=== PATIENT | male | born 1970 | race African-American/Black ===

== ENCOUNTER 2023-03-19 13:20 | Inpatient (IN) ==
--- NOTE | 2023-03-19 13:48 | ED Triage Note ---
Date of Service March 19, 2023 History of Present Illness This patient was briefly evaluated while in triage. An abbreviated physical exam was performed. This patient is a 53-year-old Male who presents to the ED for evaluation left leg infection x 1 week, here 03/15-had full evaluation, dx with cellulitis getting worse with increased pain and swelling no fevers on Bactrim Physical Exam GENERAL: NAD CARDIOVASCULAR: RRR RESPIRATORY: CTA unable to examine foot/leg due to clothing Initial orders for labs and / or imaging were placed and patient was placed in the waiting area until a bed is available. Please see further documentation for the full ED course.
[2023-03-19 16:03] LABS: Hematocrit (blood only) 33.7 % (42.0-52.0); Hemoglobin 11.3 g/dl (14.0-18.0); Mean Corpuscular Hemoglobin 29.7 pg (25.0-34.0); Mean Corpuscular Hgb Conc 33.5 g/dL (32.0-36.0); Mean Corpuscular Volume 88.5 fL (80.0-100.0); Mean Platelet Volume 10.4 fL (9.4-12.4); Platelet Count 366 K/uL (130-400); RDW Standard Deviation 41.8 fL (36.4-46.3); Red Blood Count 3.81 M/uL (4.70-6.10); White Blood Count 13.92 K/ul (4.8-10.8)
[2023-03-19 16:07] LABS: Anion Gap 6 (3-11); BUN Creatinine Ratio 16.2 (10-20); Blood Urea Nitrogen 17 mg/dl (6-23); C Reactive Protein 10.82 mg/dl (0-0.5); Calcium 9.3 mg/dl (8.6-10.3); Carbon Dioxide 27 mmol/L (21-32); Chloride 105 mmol/L (98-107); Est GFR (African American) 93.5 ml/min; Est GFR (Non-African American) 80.7 ml/min; Glucose 134 mg/dl (70-99(Fasting)); Potassium 4.2 mmol/L (3.5-5.1); Sodium 138 mmol/L (136-145)
[2023-03-19 17:18] LABS: Basophils % (auto) 0.7 %; Eosinophils # (auto) 0.45 K/uL (0.00-0.50); Eosinophils % (auto) 3.2 %; Immature Granulocytes # (auto) 0.76 K/uL (0.01-0.20); Immature Granulocytes % (auto) 5.5 %; Lymphocytes # (auto) 3.22 K/uL (1.20-3.40); Lymphocytes % (auto) 23.1 %; Monocytes # (auto) 1.17 K/uL (0.11-0.59); Monocytes % (auto) 8.4 %; Neutrophils # (auto) 8.22 K/uL (1.40-6.50); Neutrophils % (auto) 59.1 %
[2023-03-19] MEDS ORDERED: cefTRIAXone SODIUM 2,000 MG/50 ML BAG IV STA (17:55)
--- NOTE | 2023-03-19 19:02 | History & Physical Report ---
Date of Service March 19, 2023 Assessment & Plan (1) Cellulitis of left leg: (2) HTN (hypertension): (3) HLD (hyperlipidemia): (4) Iron deficiency anemia: Plan This is a 53-year-old -[place] male who has significant past medical history of HTN, HLD, iron deficiency anemia and depression who presents to ED secondary to worsening redness and swelling of left leg. Left lower extremity cellulitis Admit to medical CRP elevated 10.82 Continue Vanco and Rocephin, at risk for MRSA Encourage leg elevation, JENNIFER hose Daily probiotic Ultrasound done on 03/15 that was negative for DVT If worsening consider CT of lower extremity HTN Continue amlodipine Chronic, stable HLD Continue atorvastatin Chronic, stable Iron deficiency anemia Hemoglobin at and hematocrit 11.3 and 33.7 respectively Continue iron supplementation Right hip osteoarthritis Continue Celebrex DVT prophylaxis: Lovenox Dispo: Admit to medical, per ED patient can receive IV antibiotics at [facility] but will need to be notified by noon the day before discharge so that facility can order antibiotics Full code Patient is incarcerated at [facility] Pt was seen and examined in collaboration with Dr. Cummings, please see addendum History of Present Illness Chief Complaint: Worsened redness/swelling to Left leg. Primary Care Provider: [facility] Adam This is a 53-year-old -[place] male who has significant past medical history of HTN, HLD, iron deficiency anemia and depression who presents to ED secondary to worsening redness and swelling of left leg. He currently resides at [facility]. He was seen and evaluated in the ED 1 week ago secondary to left leg swelling and redness. He also notes the day before that he developed nausea/vomiting and diarrhea. He was treated for a LLE cellulitis with IV rocephin and discharged on oral bactrim. He continues to have worsened redness/swelling with some areas of blistering on the left leg. He denies any significant pain. He denies any trauma or open wounds. He has never had anything like this before. He denies f/c/s, chest pain, sob, n/v/d, abd pain. Overall his appetite has been okay. Allergies Allergy/AdvReac Type Severity Reaction Status Date / Time No Known Allergies Allergy Verified 03/19/23 13:48 Home Medications Medication Instructions Recorded Confirmed Type amlodipine 5 mg tablet 7.5 mg PO DAILY 03/19/23 03/19/23 History ascorbic acid (vitamin C) 500 mg 500 mg PO DAILY 03/19/23 03/19/23 History tablet (Vitamin C) aspirin 81 mg tablet,delayed 81 mg PO DAILY 03/19/23 03/19/23 History release atorvastatin 10 mg tablet 10 mg PO HS 03/19/23 03/19/23 History celecoxib 100 mg capsule 100 mg PO BID 03/19/23 03/19/23 History duloxetine 60 mg capsule,delayed 60 mg PO HS 03/19/23 03/19/23 History release ferrous sulfate 324 mg (65 mg 324 mg PO DAILY 03/19/23 03/19/23 History iron) tablet,delayed release mirtazapine 30 mg tablet 30 mg PO HS 03/19/23 03/19/23 History Past Med/Surg History Medical History Iron deficiency anemia Depression HLD (hyperlipidemia) HTN (hypertension) Surgical History No pertinent past surgical history Family History Other Family history unknown Social History Smoking Status: Never smoker Hx Alcohol Use: No Hx Substance Use: No Preferred Language: Mongolian Current Living Situation Comment: Half-Way Feels Safe at Home: Yes Review of Systems Review of Systems: All systems reviewed & are unremarkable except as noted in HPI & below Physical Exam Physical Exam: Constitutional: WD/WN, vitals as above, NAD, sitting up in bed, pleasant, conversing easily Head: Normocephalic, Atraumatic Eyes: PERRL, conjunctivae normal, anicteric sclerae ENMT: external ear and nose normal, oropharynx normal Neck: trachea midline, no thyromegaly normal visual inspection Respiratory: normal respiratory effort, lungs clear to auscultation, no wheeze, rales, rhonchi. Normal insp/exp effort, no accessory muscle use Cardiovascular: RRR, no murmur, LLE, noted below Vessels: no JVD or carotid bruit Chest: normal inspection of chest Abdomen: normal bowel sounds, soft, nontender, no hepatosplenomegaly Musculoskeletal: no cyanosis or clubbing, extremities motor strength 5/5 Skin: LLE warm, edematous, erythematous with medial blistering, scabs noted, no rashes, warm and dry normal turgor Neurologic: PERRL, EOMI, accommodation nl, no face palsy, no dysarthria CN's II-XI intact bilaterally and moves all extremities Psychiatric: A+Ox3, euthymic affect Lymphatic: no cervical or axillary lymphadenopathy : deferred Results & Data Results & Data Vital Signs (Past 12 Hours) Vital Signs Temp Pulse Resp BP Pulse Ox O2 Del Method 03/19/23 13:47 36.4 C L 90 18 135/86 97 Room Air Medications Administered Medication List Discontinued Medications Ceftriaxone Sodium (Rocephin) 2,000 mg in 50 mls @ 100 mls/hr IV NOW STA Stop: 03/19/23 18:24 Last Admin: 03/19/23 18:10 Dose: 100 mls/hr Documented By: MARGO COVID-19 Results Results COVID-19 Adm Lab Results: RBC 3.81 M/uL (4.70-6.10) L 03/19/23 WBC 13.92 K/ul (4.8-10.8) H 03/19/23 Hgb 11.3 g/dl (14.0-18.0) L 03/19/23 Hct 33.7 % (42.0-52.0) L 03/19/23 Plt Count 366 K/uL (130-400) 03/19/23 Neutrophils (%) (Auto) 59.1 % 03/19/23 Lymphocytes (%) (Auto) 23.1 % 03/19/23 Monocytes # (Auto) 1.17 K/uL (0.11-0.59) H 03/19/23 Eosinophils # (Auto) 0.45 K/uL (0.00-0.50) 03/19/23 Immature Granulocyte % (Auto) 5.5 % 03/19/23 Neutrophils # (Auto) 8.22 K/uL (1.40-6.50) H 03/19/23 Lymphocytes # (Auto) 3.22 K/uL (1.20-3.40) 03/19/23 Monocytes # (Auto) 1.17 K/uL (0.11-0.59) H 03/19/23 Eosinophils # (Auto) 0.45 K/uL (0.00-0.50) 03/19/23 Basophils # (Auto) 0.10 K/uL (0.00-0.20) 03/19/23 Immature Granulocyte # (Auto) 0.76 K/uL (0.01-0.20) H 03/19 Na 138 mmol/L (136-145) 03/19/23 K 4.2 mmol/L (3.5-5.1) 03/19/23 Cl 105 mmol/L (98-107) 03/19/23 CO2 27 mmol/L (21-32) 03/19/23 Anion Gap 6 (3-11) 03/19/23 BUN 17 mg/dl (6-23) 03/19/23 Creatinine 1.05 mg/dl (0.6-1.4) 03/19/23 BUN/Creatinine Ratio 16.2 (10-20) 03/19/23 Glucose Level 134 mg/dl (70-99(Fasting)) H 03/19/23 Ca 9.3 mg/dl (8.6-10.3) 03/19/23 CRP 10.82 mg/dl (0-0.5) H 03/19/23 SARS-CoV-2, RNA, NAAT NEGATIVE (NEGATIVE) 03/19/23 Code Status & VTE Plan Code Status FULL CODE VTE Prophylaxis Plan VTE Prophylaxis will be ordered: Yes Supervising Physician Co-Signing Physician Notes I have seen and examined the patient and have discussed the case with the pr ovider above. I agree with the assessment and plan as stated. 53-year-old man with cellulitis infection of the left lower extremity refractory to oral Bactrim therapy. He presents with worsening pain and swelling of the lower leg. On exam he is hemodynamically stable and afebrile and oxygenating well on room air. Heart and lung exam are within normal limits. He is a well- nourished well-developed man in no acute distress. Left lower extremity is larger in circumference than the right lower extremity all below the knee. There is no evidence of edema or clear wound or drainage but there is erythema to the skin. Ultrasound performed on 1115 was negative for DVT. There is no current area of fluctuance and no purulent discharge. High risk for MRSA given incarceration, however, would hold on CT of the leg at this time. Continue with IV antibiotics as noted above. There is no evidence of sepsis. Continue pain control efforts and repeat CBC, BMP in AM. Emiliano, DO
--- NOTE | 2023-03-19 19:32 | Emergency Department Note ---
ED Provider Note History of Present Illness Chief Complaint: Infection, Wound Stated Complaint: INFECTION IN LEFT FOOT Time Seen by Provider: 03/19/23 17:35 Source: patient Mode of arrival: ambulatory Limitations: no limitations This patient is a 53-year-old male who presents to the emergency department from [facility] for evaluation of a worsening left leg infection patient states that his symptoms started 1 week ago, when he developed pain and swelling in the left leg. 4 days ago, he was seen here in the emergency department and was started on Bactrim. He has been taking this as prescribed but states the pain and swelling have been worsening. He denies any fevers. Patient is not diabetic Home Medications Medication Instructions Recorded Confirmed Type amlodipine 5 mg tablet 7.5 mg PO DAILY 03/19/23 03/19/23 History ascorbic acid (vitamin C) 500 mg 500 mg PO DAILY 03/19/23 03/19/23 History tablet (Vitamin C) aspirin 81 mg tablet,delayed 81 mg PO DAILY 03/19/23 03/19/23 History release atorvastatin 10 mg tablet 10 mg PO HS 03/19/23 03/19/23 History celecoxib 100 mg capsule 100 mg PO BID 03/19/23 03/19/23 History duloxetine 60 mg capsule,delayed 60 mg PO HS 03/19/23 03/19/23 History release ferrous sulfate 324 mg (65 mg 324 mg PO DAILY 03/19/23 03/19/23 History iron) tablet,delayed release mirtazapine 30 mg tablet 30 mg PO HS 03/19/23 03/19/23 History Allergies Allergy/AdvReac Type Severity Reaction Status Date / Time No Known Allergies Allergy Verified 03/19/23 13:48 Past Med/Surg History Medical History Iron deficiency anemia Depression HLD (hyperlipidemia) HTN (hypertension) Surgical History No pertinent past surgical history Family History Other Family history unknown Social History Smoking Status: Former smoker Tobacco Type: Cigarettes Second Hand Exposure: No; Do You Dip or Chew Tobacco: No; Tobacco Cessation Education Requested by Patient: No Hx Alcohol Use: Yes Alcohol type: hard liquor Hx Substance Use: Yes Last Used Substance Other:: apr 07 2021 Preferred Language: Citizen Of [place] Vamp Wetter Required: No Beliefs That Will Affect Care: None Current Living Situation: Other Current Living Situation Comment: [facility] Feels Safe at Home: Yes Safety Concerns: Feels Safe At This Time Assistive Devices: None Physical Exam Vital Signs Vital Signs - 24 hr 03/19/23 13:47 Temperature 36.4 C L Temperature Source Skin Pulse Rate 90 Respiratory Rate 18 Blood Pressure 135/86 Blood Pressure Mean 102 Pulse Oximetry 97 Oxygen Delivery Method Room Air Sepsis Recent Fever Within 48 Hours No Sepsis New/Unexplained Change in Mental Status No Sepsis Action Taken by Nursing No Action Required VITALS: Vitals are noted on the nurse's note and reviewed by myself. GENERAL: This is a 53-year-old male, in no acute distress, well-developed well- nourished. HEART: Regular rate and rhythm without murmurs gallops or rubs. LUNGS: Clear to auscultation bilaterally without wheezes, rales or rhonchi. EXTREMITIES: Significant edema of the left lower extremity compared to the right extending up to the knee. The left lower leg is indurated, tender and erythematous. There are a few weeping lesions. NEURO: Patient was alert and oriented to person place and time. Course Administered Medications Acetaminophen (Acetaminophen 325 Mg Tab) 650 mg PO Q4H PRN PRN Reason: pain/fever Stop: 04/18/23 22:12 Last Admin: 03/19/23 22:59 Dose: 650 mg Documented By: ALEJANDRA Atorvastatin Calcium (Atorvastatin 10 Mg Tab) 10 mg PO HS LAINE Stop: 04/18/23 22:12 Last Admin: 03/19/23 22:59 Dose: 10 mg Documented By: ALEJANDRA Celecoxib (Celecoxib 100 Mg Cap) 100 mg PO BID LAINE Stop: 04/18/23 22:12 Last Admin: 03/19/23 22:59 Dose: 100 mg Documented By: ALEJANDRA Duloxetine HCl (Duloxetine Hcl 60 Mg Cap) 60 mg PO HS LAINE Stop: 04/18/23 22:12 Last Admin: 03/19/23 22:58 Dose: 60 mg Documented By: ALEJANDRA Enoxaparin Sodium (Enoxaparin Inj 40 Mg/0.4 Ml Syr) 40 mg SQ HS LAINE Stop: 04/18/23 22:12 Last Admin: 03/19/23 22:57 Dose: 40 mg Documented By: ALEJANDRA Vancomycin HCl 1,750 mg/ (Sodium Chloride) 535 mls @ 200 mls/hr IV NOW ONE Stop: 03/20/23 01:25 Last Admin: 03/19/23 22:59 Dose: 200 mls/hr Documented By: ALEJANDRA Mirtazapine (Mirtazapine Tab 15 Mg Tab) 30 mg PO HS LAINE Stop: 04/18/23 22:12 Last Admin: 03/19/23 22:58 Dose: 30 mg Documented By: ALEJANDRA Discontinued Medications Ceftriaxone Sodium (Rocephin) 2,000 mg in 50 mls @ 100 mls/hr IV NOW STA Stop: 03/19/23 18:24 Last Infusion: 03/19/23 19:43 Dose: Infused Documented By: Admin: 03/19/23 18:10 Dose: 100 mls/hr Documented By: MAGRO Medical Decision Making Differential Diagnosis Cellulitis, abscess, MRSA infection, DVT, necrotizing fasciitis, dermatitis, drug eruption, allergic reaction, as well as other pathologies. Home Medications was personally reviewed by me Laboratory Data Attestation: I reviewed the patient's lab results. 03/19/23 15:19 03/19/23 15:19 Lab Results 03/19/23 Range/Units 15:19 WBC 13.92 H (4.8-10.8) K/ul RBC 3.81 L (4.70-6.10) M/uL Hgb 11.3 L (14.0-18.0) g/dl Hct 33.7 L (42.0-52.0) % MCV 88.5 (80.0-100.0) fL MCH 29.7 (25.0-34.0) pg MCHC 33.5 (32.0-36.0) g/dL RDW Std Deviation 41.8 (36.4-46.3) fL RDW Coeff of Fab 13.0 (11.5-14.5) % Plt Count 366 (130-400) K/uL MPV 10.4 (9.4-12.4) fL Immature Gran % (Auto) 5.5 % Neut % (Auto) 59.1 % Lymph % (Auto) 23.1 % [place] % (Auto) 8.4 % Eos % (Auto) 3.2 % Baso % (Auto) 0.7 % Neut # (Auto) 8.22 H (1.40-6.50) K/uL Lymph # (Auto) 3.22 (1.20-3.40) K/uL [place] # (Auto) 1.17 H (0.11-0.59) K/uL Eos # (Auto) 0.45 (0.00-0.50) K/uL Baso # (Auto) 0.10 (0.00-0.20) K/uL Immature Gran # (Auto) 0.76 H (0.01-0.20) K/uL ESR 112 H (0-20) mm/hr Sodium 138 (136-145) mmol/L Potassium 4.2 (3.5-5.1) mmol/L Chloride 105 (98-107) mmol/L Carbon Dioxide 27 (21-32) mmol/L Anion Gap 6 (3-11) BUN 17 (6-23) mg/dl Creatinine 1.05 (0.6-1.4) mg/dl Est Cr Clr Drug Dosing Not Reportable Est GFR ( Amer) 93.5 ml/min Est GFR (Non-Af Amer) 80.7 ml/min BUN/Creatinine Ratio 16.2 (10-20) Glucose 134 H (70-99(Fasting)) mg/dl Calcium 9.3 (8.6-10.3) mg/dl C-Reactive Protein 10.82 H (0-0.5) mg/dl MDM Narrative This patient is a 53-year-old male who presents to the emergency department for evaluation of worsening cellulitis of the left lower leg. Clinically this appears to be worsening despite antibiotics as an outpatient. I did contact the correctional facility and spoke with the charge nurse there. They are able to give IV antibiotics however they would need to order them in so they would not be able to get anything started today. Patient was ordered Rocephin and vancomycin in the emergency department. The case was then discussed with the [facility] hospitalist service who agreed to evaluate the patient for further care. Impression Cellulitis of left leg Discharge Plan Visit Data Chief Complaint: Infection, Wound Stated Complaint: INFECTION IN LEFT FOOT ED Provider: Aaron Frausto ED Midlevel Provider: Christina Davalos Discharge Problem: Cellulitis of left leg Patient Disposition: Admitted As Inpatient Discharge Instructions Interventions: ED Discharge Assessment Last Done: 03/19/23 20:55
[2023-03-19] MEDS ORDERED: VANCOMYCIN CONSULT ACTIVE PRN (22:13)
[2023-03-19] MEDS ORDERED: ALUMINUM/MAGNESIUM SUSP 30 ML UDC PO PRN (22:13)
[2023-03-19] MEDS ORDERED: POLYETHYLENE (MIRALAX) 17 GM PACK PO PRN (22:13)
[2023-03-19] MEDS ORDERED: ONDANSETRON INJ 2 MG/ML 2 ML VIAL IV PRN (22:13)
[2023-03-19] MEDS ORDERED: MAGNESIUM HYDROXIDE SUSP 30 ML UDC PO PRN (22:13)
[2023-03-19] MEDS ORDERED: VANCOMYCIN HCL 1,750 MG in SODIUM CHLORIDE 0.9% 500 ML IV ONE (22:45)
[2023-03-19] MEDS: ENOXAPARIN INJ 40 MG/0.4 ML SYR SQ SCH (22:57)
[2023-03-19] MEDS: MIRTAZAPINE TAB 15 MG TAB PO SCH (22:58)
[2023-03-19] MEDS: DULoxetine HCL 60 MG CAP PO SCH (22:58)
[2023-03-19] MEDS: ACETAMINOPHEN 325 MG TAB PO PRN (22:59)
[2023-03-19] MEDS: ATORVASTATIN 10 MG TAB PO SCH (22:59)
[2023-03-19] MEDS: CELECOXIB 100 MG CAP PO SCH (22:59)
[2023-03-20 06:45] LABS: Hematocrit (blood only) 30.4 % (42.0-52.0); Hemoglobin 9.9 g/dl (14.0-18.0); Mean Corpuscular Hemoglobin 29.8 pg (25.0-34.0); Mean Corpuscular Hgb Conc 32.6 g/dL (32.0-36.0); Mean Corpuscular Volume 91.6 fL (80.0-100.0); Mean Platelet Volume 10.1 fL (9.4-12.4); Nucleated RBC # (auto) 0.02 K/uL (0.00-0.12); Nucleated RBC % (auto) 0.1 %; Platelet Count 342 K/uL (130-400); RDW Coefficient of Variation 12.9 % (11.5-14.5); RDW Standard Deviation 42.6 fL (36.4-46.3); Red Blood Count 3.32 M/uL (4.70-6.10)
[2023-03-20 07:19] LABS: Basophils # (auto) 0.09 K/uL (0.00-0.20); Basophils % (auto) 0.7 %; Eosinophils # (auto) 0.44 K/uL (0.00-0.50); Eosinophils % (auto) 3.2 %; Immature Granulocytes # (auto) 0.87 K/uL (0.01-0.20); Immature Granulocytes % (auto) 6.3 %; Lymphocytes # (auto) 3.41 K/uL (1.20-3.40); Lymphocytes % (auto) 24.7 %; Monocytes # (auto) 1.22 K/uL (0.11-0.59); Monocytes % (auto) 8.8 %; Neutrophils # (auto) 7.77 K/uL (1.40-6.50); Neutrophils % (auto) 56.3 %
[2023-03-20 07:43] LABS: Albumin Level 3.2 gm/dl (3.4-5.0); Bilirubin,Total 0.7 mg/dl (0.2-1.0); Calcium 8.4 mg/dl (8.6-10.3); Magnesium 1.9 mg/dl (1.7-2.4)
[2023-03-20 07:49] LABS: Albumin Globulin Ratio 0.9 (0.9-2); BUN Creatinine Ratio 16.8 (10-20); Creatinine Clr Calc Pharmacy 90.1 ml/min; Est GFR (Non-African American) 84.5 ml/min; Globulin 3.7 gm/dl (2.5-4.0); Total Protein 6.9 gm/dl (6.0-8.3)
--- NOTE | 2023-03-20 08:31 | Pharmacy Report ---
Pharmacy PK ABX Note - Date of Service March 20, 2023 - Assessment and Plan Assessment 53 year old M receiving empiric vancomycin and ceftriaxone for treatment of LLE cellulitis. Patient resides at [facility] and is at risk for MDROs. Patient was seen in ED on 03/15 and discharged w/ Bactrim. Pertinent microbiologic data includes: MRSA nasal swab negative, blood cultures x 2 pending. Patient is afebrile, but noted leukocytosis (WBC: ~13 K). Renal function appears stable, but unsure of baseline (SCr was 1.75 mg/dL in ED on 03/15, now 1.01 mg/dL). Day # 1 of antimicrobial therapy. Plan Vancomycin * Loading dose: 1750 mg IV x 1 * Maintenance dose: 1250 mg IV every 12 hours * Regimen is predicted to achieve target AUC/PATIENCE of 400-600 mg/L.hr * Vancomycin level ordered for: 03/22/23 Ceftriaxone * 2 g IV q24h - appropriately dosed Pharmacy will continue to follow and will adjust dose/frequency as necessary. Thank you. Pharmacy has transitioned to AUC monitoring for vancomycin. AUC/PATIENCE is the preferred PK/PD target and is associated with decreased risk of nephrotoxicity compared to traditional trough targets.
[2023-03-20] MEDS: amLODIPine BESYLATE 5 MG TAB PO SCH (08:59)
[2023-03-20] MEDS: CELECOXIB 100 MG CAP PO SCH ×2 (08:59→21:27)
[2023-03-20] MEDS: ASCORBIC ACID 500 MG TAB PO SCH (09:00)
[2023-03-20] MEDS: FERROUS SULFATE 325 MG TAB PO SCH (09:00)
[2023-03-20] MEDS: ASPIRIN 81 MG ECTAB PO SCH (09:00)
[2023-03-20] MEDS: VANCOMYCIN HCL 1,250 MG in SODIUM CHLORIDE 0.9% 250 ML IV SCH ×2 (09:09→21:23)
[2023-03-20] MEDS: cefTRIAXone SODIUM 2,000 MG in DEXTROSE 5 % MINI-B 50 ML IV SCH (11:14)
[2023-03-20] MEDS ORDERED: OPTIRAY 320 500ml IV ONE (12:12)
--- NOTE | 2023-03-20 13:14 | CT Scan Report ---
CT tib/fib LT w con CLINICAL HISTORY: swelling, cellulitis TECHNIQUE: Multidetector row helical CT of the left tibia and fibula was performed without intravenou s contrast. Coronal and sagittal reformations were obtained. Automated dose lowering techniques and/o r adjustment according to patient size were utilized for this examination. CT DOSE: 349.61 mGy.cm Comparison: Comparison is made to tibia and fibula radiograph 03/15/2023 FINDINGS: The osseous structures are without fracture or dislocation. Degenerative changes are seen in the bone s of the ankle with subchondral cyst formation in the talus. No joint effusion is seen. Skin thicken ing and diffuse soft tissue edema is seen without drainable fluid collection. IMPRESSION: Soft tissue swelling without drainable fluid collection. No underlying bony abnormalities are seen. ACT 112: Negative or not required by law. Electronically signed by: Sarmad Rodriguez M.D. 03/20/2023 1:12 PM
--- NOTE | 2023-03-20 14:39 | Hospitalist Progress Note ---
Date of Service March 20, 2023 Assessment & Plan (1) Cellulitis of left leg: (2) HTN (hypertension): (3) HLD (hyperlipidemia): (4) Iron deficiency anemia: Plan This is a 53-year-old -[place] male who has significant past medical history of HTN, HLD, iron deficiency anemia and depression who presented to ED secondary to worsening redness and swelling of left leg. Left lower extremity cellulitis WBC 13.9 --> 13.8 CRP elevated 10.82 On Vanco and Rocephin (day 2) Encourage leg elevation, JENNIFER hose Daily probiotic Ultrasound done on 03/15 that was negative for DVT CT LLE obtained today - negative for drainable fluid collection HTN Continue amlodipine Chronic, stable HLD Continue atorvastatin Chronic, stable Iron deficiency anemia Hgb 11.3 --> 9.9 Continue iron supplementation Right hip osteoarthritis Continue Celebrex DVT prophylaxis: SQ Lovenox Dispo: Pending, continuing IV antibiotics, patient is incarcerated at [facility] Patient seen collaboration with Dr. Swartz. Admission and Anticipated Discharge Date Admission Date: March 19, 2023 Supervising Physician Co-Signing Physician Notes Care coordinated with PARRISH Patel. Agree with above note. Patient seen and examined. Please refer to her notes for full details. Vital signs reviewed. Physical exam: General exam: Alert and oriented. Not in acute distress. CVS: S1 and S2 heard, regular rate and rhythm, no murmurs. RS: Clear to auscultation, no wheezing or crackles. ABD: Soft, bowel sounds present, nontender, no distention. DIRECTOR OPERATING: Nonfocal. EXT: Left lower extremity is edematous and tender to palpation. Labs: Reviewed. Assessment and plan: Left Lower extremity cellulitis continue iv vanco and Rocephin CT scan no abscess seen monitor response pain control Other diagnosis and plan of care as per PARRISH Patel.. Bhavin patel MD. Subjective Follow-up for LLE cellulitis. Patient seen and examined. Reports minimal improvement in left lower leg. Remains afebrile. Denies body aches and chills. No chest pain or shortness of breath. Denies abdominal pain and nausea. Physical Exam Constitutional: WD/WN, vitals as above no acute distress Respiratory: normal respiratory effort, lungs clear to auscultation Cardiovascular: Rate/Rhythm: regular rate and regular rhythm Vessels: anish l peripheral pulses Extremities: + edema (+2 edema LLE) Gastrointestinal (Abdomen): Percussion/Palpation: abdomen soft; abdomen nontender Musculoskeletal: +2 edema LLE; scattered dried scabs note d on the posterior and medial aspects of left lower leg Skin: no rashes, warm and dry Neurologic: no focal motor deficits Psychiatric: A+Ox3, euthymic affect Results & Data Results & Data Vital Signs (Past 12 Hours) Vital Signs Temp Pulse Resp BP Pulse Ox O2 Del Method 03/20/23 08:30 Room Air 03/20/23 07:55 36.6 C 75 16 108/72 96 Room Air Laboratory Results Short CBC 03/19/23 03/20/23 Range/Units 15:19 06:03 WBC 13.92 H 13.80 H (4.8-10.8) K/ul Hgb 11.3 L 9.9 L (14.0-18.0) g/dl Hct 33.7 L 30.4 L (42.0-52.0) % Plt Count 366 342 (130-400) K/uL [facility] 03/19/23 03/20/23 15:19 06:03 Sodium 138 140 Potassium 4.2 4.0 Chloride 105 109 H Carbon Dioxide 27 26 BUN 17 17 Creatinine 1.05 1.01 Glucose 134 H 160 H Calcium 9.3 8.4 L Liver Function 03/20/23 Range/Units 06:03 Total Bilirubin 0.7 (0.2-1.0) mg/dl AST 23 (13-39) U/L ALT 26 (7-52) U/L Alkaline Phosphatase 99 (34-104) U/L Albumin 3.2 L (3.4-5.0) gm/dl Diagnostic Findings Lower Extremity CT 03/20/23 09:40 CT tib/fib LT w con CLINICAL HISTORY: swelling, cellulitis TECHNIQUE: Multidetector row helical CT of the left tibia and fibula was performed without intravenous contrast. Coronal and sagittal reformations were obtained. Automated dose lowering techniques and/or adjustment according to patient size were utilized for this examination. CT DOSE: 349.61 mGy.cm Comparison: Comparison is made to tibia and fibula radiograph 03/15/2023 FINDINGS: The osseous structures are without fracture or dislocation. Degenerative changes are seen in the bones of the ankle with subchondral cyst formation in the talus. No joint effusion is seen. Skin thickening and diffuse soft tissue edema is seen without drainable fluid collection. IMPRESSION: Soft tissue swelling without drainable fluid collection. No underlying bony abnormalities are seen. ACT 112: Negative or not required by law. Electronically signed by: Sarmad Rodriguez M.D. 03/20/2023 1:12 PM
[2023-03-20] MEDS: DULoxetine HCL 60 MG CAP PO SCH (21:26)
[2023-03-20] MEDS: ATORVASTATIN 10 MG TAB PO SCH (21:27)
[2023-03-20] MEDS: MIRTAZAPINE TAB 15 MG TAB PO SCH (21:27)
[2023-03-20] MEDS: ENOXAPARIN INJ 40 MG/0.4 ML SYR SQ SCH (21:28)
[2023-03-21 06:40] LABS: Hematocrit (blood only) 29.1 % (42.0-52.0); Hemoglobin 9.5 g/dl (14.0-18.0); Mean Corpuscular Hemoglobin 29.7 pg (25.0-34.0); Mean Corpuscular Hgb Conc 32.6 g/dL (32.0-36.0); Mean Corpuscular Volume 90.9 fL (80.0-100.0); Mean Platelet Volume 9.9 fL (9.4-12.4); Nucleated RBC # (auto) 0.03 K/uL (0.00-0.12); Nucleated RBC % (auto) 0.2 %; Platelet Count 363 K/uL (130-400); RDW Coefficient of Variation 13.1 % (11.5-14.5); RDW Standard Deviation 43.5 fL (36.4-46.3); White Blood Count 12.26 K/ul (4.8-10.8)
[2023-03-21 07:09] LABS: BUN Creatinine Ratio 19.6 (10-20); Calcium 8.7 mg/dl (8.6-10.3); Creatinine Clr Calc Pharmacy 98.9 ml/min; Est GFR (African American) 109.7 ml/min; Est GFR (Non-African American) 94.6 ml/min; Potassium 4.4 mmol/L (3.5-5.1)
[2023-03-21] MEDS: amLODIPine BESYLATE 5 MG TAB PO SCH (08:18)
[2023-03-21] MEDS: VANCOMYCIN HCL 1,250 MG in SODIUM CHLORIDE 0.9% 250 ML IV SCH ×2 (08:18→20:21)
[2023-03-21] MEDS: ASPIRIN 81 MG ECTAB PO SCH (08:18)
[2023-03-21] MEDS: ASCORBIC ACID 500 MG TAB PO SCH (08:19)
[2023-03-21] MEDS: FERROUS SULFATE 325 MG TAB PO SCH (08:19)
[2023-03-21] MEDS: CELECOXIB 100 MG CAP PO SCH ×2 (08:19→20:25)
[2023-03-21] MEDS: ACETAMINOPHEN 325 MG TAB PO PRN (08:27)
[2023-03-21] MEDS: cefTRIAXone SODIUM 2,000 MG in DEXTROSE 5 % MINI-B 50 ML IV SCH (09:49)
--- NOTE | 2023-03-21 14:50 | Hospitalist Progress Note ---
Date of Service March 21, 2023 Assessment & Plan (1) Cellulitis of left leg: (2) HTN (hypertension): (3) HLD (hyperlipidemia): (4) Iron deficiency anemia: Plan This is a 53-year-old -[place] male who has significant past medical history of HTN, HLD, iron deficiency anemia and depression who presented to ED secondary to worsening redness and swelling of left leg. Left lower extremity cellulitis WBC 13.9 --> 13.8 -> 12.2 CRP elevated 10.82 On Vanco and Rocephin (day 3) Encourage leg elevation Daily probiotic Ultrasound done on 03/15 that was negative for DVT CT LLE obtained on 03/21 - negative for drainable fluid collection HTN Continue amlodipine Chronic, stable HLD Continue atorvastatin Chronic, stable Iron deficiency anemia Hgb 11.3 --> 9.9 -> 9.5 Continue iron supplementation Right hip osteoarthritis Continue Celebrex DVT prophylaxis: SQ Lovenox Dispo: Pending, continuing IV antibiotics, patient is incarcerated at [facility] Admission and Anticipated Discharge Date Admission Date: March 19, 2023 Subjective Follow-up for LLE cellulitis. Patient seen and examined. Says edema has improved. Remains afebrile. Denies body aches and chills. No chest pain or shortness of breath. Denies abdominal pain and nausea. CT obtained yesterday - no abscess Review of Systems Review of Systems: All systems reviewed & are unremarkable except as noted in Subjective Physical Exam Physical Exam: Constitutional: WD/WN, vitals as a doug no acute dis tress Respiratory: normal respiratory effort, lungs kacey ar to auscultation Cardiovascular: Rate/Rhythm: regul ar rate and regula r rhythm Vessels: normal peripheral pulses Extremiti es: + edema (+2 ed cherie LLE) Gastrointestinal ( Abdomen): Percussion/Palpati on: abdomen soft; abdomen nontender Musculoskeletal: +2 edema LLE; sc attered dried scab s noted on the pos terior and medial aspects of left lo wer leg Skin: no rashes, warm an d dry Neurologic: no focal motor def icits Psychiatric: A+Ox3, euthymic af fect Results & Data Results & Data Vital Signs (Past 12 Hours) Vital Signs Temp Pulse Resp BP Pulse Ox O2 Del Method 03/21/23 14:24 36.8 C 72 16 124/75 97 Room Air 03/21/23 08:30 Room Air 03/21/23 07:14 36.5 C 62 18 120/72 98 Room Air Laboratory Results 03/21/23 Range/Units 06:13 WBC 12.26 H (4.8-10.8) K/ul RBC 3.20 L (4.70-6.10) M/uL Hgb 9.5 L (14.0-18.0) g/dl Hct 29.1 L (42.0-52.0) % MCV 90.9 (80.0-100.0) fL MCH 29.7 (25.0-34.0) pg MCHC 32.6 (32.0-36.0) g/dL RDW Std Deviation 43.5 (36.4-46.3) fL RDW Coeff of Fab 13.1 (11.5-14.5) % Plt Count 363 (130-400) K/uL MPV 9.9 (9.4-12.4) fL Absolute Nucleated RBC 0.03 (0.00-0.12) K/uL Nucleated RBC % (auto) 0.2 % Sodium 138 (136-145) mmol/L Potassium 4.4 (3.5-5.1) mmol/L Chloride 106 (98-107) mmol/L Carbon Dioxide 29 (21-32) mmol/L Anion Gap 3 (3-11) BUN 18 (6-23) mg/dl Creatinine 0.92 (0.6-1.4) mg/dl Est Cr Clr Drug Dosing 98.9 ml/min Est GFR ( Amer) 109.7 ml/min Est GFR (Non-Af Amer) 94.6 ml/min BUN/Creatinine Ratio 19.6 (10-20) Glucose 106 H (70-99(Fasting)) mg/dl Calcium 8.7 (8.6-10.3) mg/dl Medications Administered Current Inpatient Medications Acetaminophen (Acetaminophen 325 Mg Tab) 650 mg PO Q4H PRN PRN Reason: pain/fever Stop: 04/18/23 22:12 Last Admin: 03/21/23 08:27 Dose: 650 mg Al Hydrox/Mg Hydrox/Simethicone (Aluminum/Magnesium Susp 30 Ml Udc) 30 ml PO Q6H PRN PRN Reason: Dyspepsia Stop: 04/18/23 22:12 Amlodipine Besylate (Amlodipine Besylate 5 Mg Tab) 7.5 mg PO DAILY LAINE Stop: 04/19/23 08:59 Last Admin: 03/21/23 08:18 Dose: 7.5 mg Ascorbic Acid (Ascorbic Acid 500 Mg Tab) 500 mg PO DAILY LAINE Stop: 04/19/23 08:59 Last Admin: 03/21/23 08:19 Dose: 500 mg Aspirin (Aspirin 81 Mg Ectab) 81 mg PO DAILY LAINE Stop: 04/19/23 08:59 Last Admin: 03/21/23 08:18 Dose: 81 mg Atorvastatin Calcium (Atorvastatin 10 Mg Tab) 10 mg PO HS LAINE Stop: 04/18/23 22:12 Last Admin: 03/20/23 21:27 Dose: 10 mg Celecoxib (Celecoxib 100 Mg Cap) 100 mg PO BID LAINE Stop: 04/18/23 22:12 Last Admin: 03/21/23 08:19 Dose: 100 mg Duloxetine HCl (Duloxetine Hcl 60 Mg Cap) 60 mg PO HS LAINE Stop: 04/18/23 22:12 Last Admin: 03/20/23 21:26 Dose: 60 mg Enoxaparin Sodium (Enoxaparin Inj 40 Mg/0.4 Ml Syr) 40 mg SQ HS LAINE Stop: 04/18/23 22:12 Last Admin: 03/20/23 21:28 Dose: 40 mg Ferrous Sulfate (Ferrous Sulfate 325 Mg Tab) 325 mg PO DAILY LAINE Stop: 04/19/23 08:59 Last Admin: 03/21/23 08:19 Dose: 325 mg Ceftriaxone Sodium 2,000 mg/ (Dextrose) 50 mls @ 100 mls/hr IV Q24H LAINE; Protocol Stop: 03/27/23 08:59 Last Infusion: 03/21/23 10:19 Dose: Infused Vancomycin HCl 1,250 mg/ (Sodium Chloride) 275 mls @ 200 mls/hr IV Q12H [facility] Stop: 03/27/23 07:59 Last Infusion: 03/21/23 09:41 Dose: Infused Magnesium Hydroxide (Magnesium Hydroxide Susp 30 Ml Udc) 30 ml PO Q6H PRN PRN Reason: Constipation Stop: 04/18/23 22:12 Mirtazapine (Mirtazapine Tab 15 Mg Tab) 30 mg PO HS LAINE Stop: 04/18/23 22:12 Last Admin: 03/20/23 21:27 Dose: 30 mg Miscellaneous Information (Vancomycin Consult Active) 1 each N/A UD PRN PRN Reason: Consult Stop: 04/18/23 22:12 Ondansetron HCl (Ondansetron Inj 2 Mg/Ml 2 Ml Vial) 4 mg IV Q6H PRN PRN Reason: Nausea Stop: 04/18/23 22:12 Polyethylene Glycol (Polyethylene (Miralax) 17 Gm Pack) 17 gm PO DAILY PRN PRN Reason: Constipation Stop: 04/18/23 22:12
[2023-03-21] MEDS: ENOXAPARIN INJ 40 MG/0.4 ML SYR SQ SCH (20:21)
[2023-03-21] MEDS: DULoxetine HCL 60 MG CAP PO SCH (20:23)
[2023-03-21] MEDS: ATORVASTATIN 10 MG TAB PO SCH (20:24)
[2023-03-21] MEDS: MIRTAZAPINE TAB 15 MG TAB PO SCH (20:24)
[2023-03-22 05:53] LABS: Hematocrit (blood only) 30.4 % (42.0-52.0); Hemoglobin 9.7 g/dl (14.0-18.0); Mean Corpuscular Hemoglobin 29.8 pg (25.0-34.0); Mean Corpuscular Hgb Conc 31.9 g/dL (32.0-36.0); Mean Corpuscular Volume 93.3 fL (80.0-100.0); Mean Platelet Volume 9.8 fL (9.4-12.4); Nucleated RBC # (auto) 0.02 K/uL (0.00-0.12); Nucleated RBC % (auto) 0.2 %; Platelet Count 393 K/uL (130-400); RDW Coefficient of Variation 13.1 % (11.5-14.5); RDW Standard Deviation 44.5 fL (36.4-46.3); Red Blood Count 3.26 M/uL (4.70-6.10); White Blood Count 11.11 K/ul (4.8-10.8)
[2023-03-22 06:02] LABS: BUN Creatinine Ratio 19.3 (10-20); Calcium 8.7 mg/dl (8.6-10.3); Creatinine Clr Calc Pharmacy 109.6 ml/min; Est GFR (African American) 116.4 ml/min; Est GFR (Non-African American) 100.5 ml/min; Magnesium 2.1 mg/dl (1.7-2.4); Phosphorus 3.3 mg/dl (2.5-4.9); Potassium 4.2 mmol/L (3.5-5.1)
--- NOTE | 2023-03-22 07:05 | Hospitalist Progress Note ---
Date of Service March 22, 2023 Assessment & Plan (1) Cellulitis of left leg: (2) HTN (hypertension): (3) HLD (hyperlipidemia): (4) Iron deficiency anemia: Plan This is a 53-year-old -[place]ry[place] male who has significant past medical history of HTN, HLD, iron deficiency anemia and depression who presented to ED secondary to worsening redness and swelling of left leg. Left lower extremity cellulitis WBC 13.9 --> 11.1 CRP elevated 10.82 On Vanco and Rocephin (day 3) Encourage leg elevation Daily probiotic Ultrasound done on 03/15 that was negative for DVT CT LLE obtained on 03/21 - negative for drainable fluid collection HTN Continue amlodipine Chronic, stable HLD Continue atorvastatin Chronic, stable Iron deficiency anemia Hgb 11.3 --> 9.9 -> 9.7 Continue iron supplementation Right hip osteoarthritis Continue Celebrex DVT prophylaxis: SQ Lovenox Dispo: Pending, continuing IV antibiotics, patient is incarcerated at [facility] Admission and Anticipated Discharge Date Admission Date: March 19, 2023 Subjective Follow-up for LLE cellulitis. Patient seen and examined. Reports that edema and pain has much improved. Remains afebrile. Denies body aches and chills. No chest pain or shortness of breath. Denies abdominal pain and nausea. Review of Systems Review of Systems: All systems reviewed & are unremarkable except as noted in Subjective Physical Exam Physical Exam: Constitutional: WD/WN, vitals as a doug no acute dis tress Respiratory: normal respiratory effort, lungs kacey ar to auscultation Cardiovascular: Rate/Rhythm: regul ar rate and regula r rhythm Vessels: normal peripheral pulses Extremiti es: + edema (+1 ed cherie LLE improved) Gastrointestinal ( Abdomen): Percussion/Palpati on: abdomen soft; abdomen nontender Musculoskeletal: +1 edema LLE; sc attered dried scab s noted on the pos terior and medial aspects of left lo wer leg Skin: no rashes, warm an d dry Neurologic: no focal motor def icits Psychiatric: A+Ox3, euthymic af fect Results & Data Results & Data Vital Signs (Past 12 Hours) Vital Signs Temp Pulse Resp BP Pulse Ox O2 Del Method 03/21/23 20:20 37.0 C 73 16 118/79 97 Room Air Laboratory Results 03/22/23 03/21/23 Range/Units 05:21 06:13 WBC 11.11 H (4.8-10.8) K/ul RBC 3.26 L (4.70-6.10) M/uL Hgb 9.7 L (14.0-18.0) g/dl Hct 30.4 L (42.0-52.0) % MCV 93.3 (80.0-100.0) fL MCH 29.8 (25.0-34.0) pg MCHC 31.9 L (32.0-36.0) g/dL RDW Std Deviation 44.5 (36.4-46.3) fL RDW Coeff of Fab 13.1 (11.5-14.5) % Plt Count 393 (130-400) K/uL MPV 9.8 (9.4-12.4) fL Absolute Nucleated RBC 0.02 (0.00-0.12) K/uL Nucleated RBC % (auto) 0.2 % Sodium 138 138 (136-145) mmol/L Potassium 4.2 4.4 (3.5-5.1) mmol/L Chloride 106 106 (98-107) mmol/L Carbon Dioxide 28 29 (21-32) mmol/L Anion Gap 4 3 (3-11) BUN 16 18 (6-23) mg/dl Creatinine 0.83 0.92 (0.6-1.4) mg/dl Est Cr Clr Drug Dosing 109.6 98.9 ml/min Est GFR ( Amer) 116.4 109.7 ml/min Est GFR (Non-Af Amer) 100.5 94.6 ml/min BUN/Creatinine Ratio 19.3 19.6 (10-20) Glucose 130 H 106 H (70-99(Fasting)) mg/dl Calcium 8.7 8.7 (8.6-10.3) mg/dl Phosphorus 3.3 (2.5-4.9) mg/dl Magnesium 2.1 (1.7-2.4) mg/dl Random Vancomycin 10.4 (10-20) mcg/ml Medications Administered Current Inpatient Medications Acetaminophen (Acetaminophen 325 Mg Tab) 650 mg PO Q4H PRN PRN Reason: pain/fever Stop: 04/18/23 22:12 Last Admin: 03/21/23 08:27 Dose: 650 mg Al Hydrox/Mg Hydrox/Simethicone (Aluminum/Magnesium Susp 30 Ml Udc) 30 ml PO Q6H PRN PRN Reason: Dyspepsia Stop: 04/18/23 22:12 Amlodipine Besylate (Amlodipine Besylate 5 Mg Tab) 7.5 mg PO DAILY LAINE Stop: 04/19/23 08:59 Last Admin: 03/21/23 08:18 Dose: 7.5 mg Ascorbic Acid (Ascorbic Acid 500 Mg Tab) 500 mg PO DAILY LAINE Stop: 04/19/23 08:59 Last Admin: 03/21/23 08:19 Dose: 500 mg Aspirin (Aspirin 81 Mg Ectab) 81 mg PO DAILY LAINE Stop: 04/19/23 08:59 Last Admin: 03/21/23 08:18 Dose: 81 mg Atorvastatin Calcium (Atorvastatin 10 Mg Tab) 10 mg PO HS LAINE Stop: 04/18/23 22:12 Last Admin: 03/21/23 20:24 Dose: 10 mg Celecoxib (Celecoxib 100 Mg Cap) 100 mg PO BID LAINE Stop: 04/18/23 22:12 Last Admin: 03/21/23 20:25 Dose: 100 mg Duloxetine HCl (Duloxetine Hcl 60 Mg Cap) 60 mg PO HS LAINE Stop: 04/18/23 22:12 Last Admin: 03/21/23 20:23 Dose: 60 mg Enoxaparin Sodium (Enoxaparin Inj 40 Mg/0.4 Ml Syr) 40 mg SQ HS LAINE Stop: 04/18/23 22:12 Last Admin: 03/21/23 20:21 Dose: 40 mg Ferrous Sulfate (Ferrous Sulfate 325 Mg Tab) 325 mg PO DAILY LAINE Stop: 04/19/23 08:59 Last Admin: 03/21/23 08:19 Dose: 325 mg Ceftriaxone Sodium 2,000 mg/ (Dextrose) 50 mls @ 100 mls/hr IV Q24H LAINE; Protocol Stop: 03/27/23 08:59 Last Infusion: 03/21/23 10:19 Dose: Infused Vancomycin HCl 1,250 mg/ (Sodium Chloride) 275 mls @ 200 mls/hr IV Q12H LAINE Stop: 03/27/23 07:59 Last Infusion: 03/21/23 21:50 Dose: Infused Magnesium Hydroxide (Magnesium Hydroxide Susp 30 Ml Udc) 30 ml PO Q6H PRN PRN Reason: Constipation Stop: 04/18/23 22:12 Mirtazapine (Mirtazapine Tab 15 Mg Tab) 30 mg PO HS LAINE Stop: 04/18/23 22:12 Last Admin: 03/21/23 20:24 Dose: 30 mg Miscellaneous Information (Vancomycin Consult Active) 1 each N/A UD PRN PRN Reason: Consult Stop: 04/18/23 22:12 Ondansetron HCl (Ondansetron Inj 2 Mg/Ml 2 Ml Vial) 4 mg IV Q6H PRN PRN Reason: Nausea Stop: 04/18/23 22:12 Polyethylene Glycol (Polyethylene (Miralax) 17 Gm Pack) 17 gm PO DAILY PRN PRN Reason: Constipation Stop: 04/18/23 22:12
[2023-03-22] MEDS ORDERED: VANCOMYCIN LEVEL ONE (07:30)
[2023-03-22] MEDS: FERROUS SULFATE 325 MG TAB PO SCH (09:00)
[2023-03-22] MEDS: cefTRIAXone SODIUM 2,000 MG in DEXTROSE 5 % MINI-B 50 ML IV SCH (09:00)
[2023-03-22] MEDS: amLODIPine BESYLATE 5 MG TAB PO SCH (09:00)
[2023-03-22] MEDS: ASPIRIN 81 MG ECTAB PO SCH (09:01)
[2023-03-22] MEDS: ASCORBIC ACID 500 MG TAB PO SCH (09:01)
[2023-03-22] MEDS: CELECOXIB 100 MG CAP PO SCH ×2 (09:01→20:42)
[2023-03-22] MEDS: VANCOMYCIN HCL 1,250 MG in SODIUM CHLORIDE 0.9% 250 ML IV SCH ×2 (09:28→18:03)
--- NOTE | 2023-03-22 09:38 | Pharmacy Report ---
Pharmacy PK ABX Note - Date of Service March 22, 2023 - Assessment and Plan Assessment 03/22: Random level this morning 10.4 mcg/mL, predicts AUC just below target (397 mg/L.hr) with 48% probability that AUC is >400. Will adjust dose today. Blood cultures negative at 48 hours. SCr has been downtrending since admission. Mild leukocytosis also downtrending. Some improvement to edema noted. Day #4 of antibiotics. 03/20 53 year old M receiving empiric vancomycin and ceftriaxone for treatment of LLE cellulitis. Patient resides at [facility] and is at risk for MDROs. Patient was seen in ED on 03/15 and discharged w/ Bactrim. Pertinent microbiologic data includes: MRSA nasal swab negative, blood cultures x 2 pending. Patient is afebrile, but noted leukocytosis (WBC: ~13 K). Renal function appears stable, but unsure of baseline (SCr was 1.75 mg/dL in ED on 03/15, now 1.01 mg/dL). Day # 1 of antimicrobial therapy. Plan 03/22: Vancomycin * Adjust dose to 1250 mg q8H * This predicts a ssAUC of 583 mg/L.hr with 99% probability in goal range * Level to be ordered for 03/23. 03/20: Vancomycin * Loading dose: 1750 mg IV x 1 * Maintenance dose: 1250 mg IV every 12 hours * Regimen is predicted to achieve target AUC/PATIENCE of 400-600 mg/L.hr * Vancomycin level ordered for: 03/22/23 Ceftriaxone * 2 g IV q24h - appropriately dosed Pharmacy will continue to follow and will adjust dose/frequency as necessary. Thank you. Pharmacy has transitioned to AUC monitoring for vancomycin. AUC/PATIENCE is the preferred PK/PD target and is associated with decreased risk of nephrotoxicity compared to traditional trough targets.
[2023-03-22] MEDS: ENOXAPARIN INJ 40 MG/0.4 ML SYR SQ SCH (20:42)
[2023-03-22] MEDS: DULoxetine HCL 60 MG CAP PO SCH (20:42)
[2023-03-22] MEDS: ATORVASTATIN 10 MG TAB PO SCH (20:42)
[2023-03-22] MEDS: MIRTAZAPINE TAB 15 MG TAB PO SCH (20:42)
[2023-03-23] MEDS: VANCOMYCIN HCL 1,250 MG in SODIUM CHLORIDE 0.9% 250 ML IV SCH ×3 (02:35→18:06)
[2023-03-23] MEDS ORDERED: VANCOMYCIN LEVEL ONE (08:00)
[2023-03-23 08:35] LABS: Hematocrit (blood only) 32.8 % (42.0-52.0); Hemoglobin 10.7 g/dl (14.0-18.0); Mean Corpuscular Hemoglobin 29.7 pg (25.0-34.0); Mean Corpuscular Hgb Conc 32.6 g/dL (32.0-36.0); Mean Corpuscular Volume 91.1 fL (80.0-100.0); Mean Platelet Volume 9.7 fL (9.4-12.4); Nucleated RBC # (auto) 0.02 K/uL (0.00-0.12); Nucleated RBC % (auto) 0.2 %; Platelet Count 431 K/uL (130-400); RDW Coefficient of Variation 13.2 % (11.5-14.5); RDW Standard Deviation 43.6 fL (36.4-46.3); White Blood Count 10.73 K/ul (4.8-10.8)
[2023-03-23 08:51] LABS: Creatinine Clr Calc Pharmacy 113.7 ml/min; Est GFR (African American) 118.2 ml/min; Phosphorus 3.3 mg/dl (2.5-4.9); Potassium 4.6 mmol/L (3.5-5.1)
--- NOTE | 2023-03-23 08:52 | Hospitalist Progress Note ---
Date of Service March 23, 2023 Assessment & Plan (1) Cellulitis of left leg: (2) HTN (hypertension): (3) HLD (hyperlipidemia): (4) Iron deficiency anemia: Plan This is a 53-year-old -[place] male who has significant past medical history of HTN, HLD, iron deficiency anemia and depression who presented to ED secondary to worsening redness and swelling of left leg. Left lower extremity cellulitis WBC 13.9 --> 10.7 CRP elevated 10.82 On Vanco and Rocephin (day 4) Encourage leg elevation Daily probiotic Ultrasound done on 03/15 that was negative for DVT CT LLE obtained on 03/21 - negative for drainable fluid collection 03/23 edema, erythema and pain much improved. Pt denies any more pain however did not ambulate while hospitalized. Contacted physician at [facility] - they don't have antibiotics for the pt at this time and pt has to be able to ambulate before he returns to long-term. HTN Continue amlodipine Chronic, stable HLD Continue atorvastatin Chronic, stable Iron deficiency anemia Hgb 11.3 --> 9.9 -> 10.7 Continue iron supplementation Right hip osteoarthritis Continue Celebrex DVT prophylaxis: SQ Lovenox Dispo: Pending, continuing IV antibiotics, patient is incarcerated at [facility] Admission and Anticipated Discharge Date Admission Date: March 19, 2023 Subjective Follow-up for LLE cellulitis. Patient seen and examined. Reports that edema and pain has much improved. Remains afebrile. Denies body aches and chills. No chest pain or shortness of breath. Denies abdominal pain and nausea. Contacted physician at [facility] - they don't have antibiotics for the patient right now. Also have to ensure that patient can ambulate. Discussed with pt's RN, will have patient ambulate and re-assess. Review of Systems Review of Systems: All systems reviewed & are unremarkable except as noted in Subjective Physical Exam Physical Exam: Constitutional: WD/WN, vitals as a doug no acute dis tress Respiratory: normal respiratory effort, lungs kacey ar to auscultation Cardiovascular: Rate/Rhythm: regul ar rate and regula r rhythm Vessels: normal peripheral pulses Extremiti es: + edema (+1 ed cherie LLE improved) Gastrointestinal ( Abdomen): Percussion/Palpati on: abdomen soft; abdomen nontender Musculoskeletal: +1 edema LLE; sc attered dried scab s noted on the pos terior and medial aspects of left lo wer leg Skin: no rashes, warm an d dry Neurologic: no focal motor def icits Psychiatric: A+Ox3, euthymic af fect Results & Data Results & Data Vital Signs (Past 12 Hours) Vital Signs Temp Pulse Resp BP Pulse Ox O2 Del Method 03/23/23 07:08 36.6 C 71 15 122/81 92 Room Air Laboratory Results 03/23/23 Range/Units 08:10 WBC 10.73 (4.8-10.8) K/ul RBC 3.60 L (4.70-6.10) M/uL Hgb 10.7 L (14.0-18.0) g/dl Hct 32.8 L (42.0-52.0) % MCV 91.1 (80.0-100.0) fL MCH 29.7 (25.0-34.0) pg MCHC 32.6 (32.0-36.0) g/dL RDW Std Deviation 43.6 (36.4-46.3) fL RDW Coeff of Fab 13.2 (11.5-14.5) % Plt Count 431 H (130-400) K/uL MPV 9.7 (9.4-12.4) fL Absolute Nucleated RBC 0.02 (0.00-0.12) K/uL Nucleated RBC % (auto) 0.2 % Sodium 138 (136-145) mmol/L Potassium 4.6 (3.5-5.1) mmol/L Chloride 106 (98-107) mmol/L Carbon Dioxide 27 (21-32) mmol/L Anion Gap 5 (3-11) BUN 16 (6-23) mg/dl Creatinine 0.80 (0.6-1.4) mg/dl Est Cr Clr Drug Dosing 113.7 ml/min Est GFR ( Amer) 118.2 ml/min Est GFR (Non-Af Amer) 102.0 ml/min BUN/Creatinine Ratio 20.0 (10-20) Glucose 94 (70-99(Fasting)) mg/dl Calcium 9.0 (8.6-10.3) mg/dl Phosphorus 3.3 (2.5-4.9) mg/dl Magnesium 2.0 (1.7-2.4) mg/dl Random Vancomycin 13.9 (10-20) mcg/ml Medications Administered Current Inpatient Medications Acetaminophen (Acetaminophen 325 Mg Tab) 650 mg PO Q4H PRN PRN Reason: pain/fever Stop: 04/18/23 22:12 Last Admin: 03/21/23 08:27 Dose: 650 mg Al Hydrox/Mg Hydrox/Simethicone (Aluminum/Magnesium Susp 30 Ml Udc) 30 ml PO Q6H PRN PRN Reason: Dyspepsia Stop: 04/18/23 22:12 Amlodipine Besylate (Amlodipine Besylate 5 Mg Tab) 7.5 mg PO DAILY LAINE Stop: 04/19/23 08:59 Last Admin: 03/22/23 09:00 Dose: 7.5 mg Ascorbic Acid (Ascorbic Acid 500 Mg Tab) 500 mg PO DAILY LAINE Stop: 04/19/23 08:59 Last Admin: 03/22/23 09:01 Dose: 500 mg Aspirin (Aspirin 81 Mg Ectab) 81 mg PO DAILY LAINE Stop: 04/19/23 08:59 Last Admin: 03/22/23 09:01 Dose: 81 mg Atorvastatin Calcium (Atorvastatin 10 Mg Tab) 10 mg PO HS LAINE Stop: 04/18/23 22:12 Last Admin: 03/22/23 20:42 Dose: 10 mg Celecoxib (Celecoxib 100 Mg Cap) 100 mg PO BID LAINE Stop: 04/18/23 22:12 Last Admin: 03/22/23 20:42 Dose: 100 mg Duloxetine HCl (Duloxetine Hcl 60 Mg Cap) 60 mg PO HS LAINE Stop: 04/18/23 22:12 Last Admin: 03/22/23 20:42 Dose: 60 mg Enoxaparin Sodium (Enoxaparin Inj 40 Mg/0.4 Ml Syr) 40 mg SQ HS LAINE Stop: 04/18/23 22:12 Last Admin: 03/22/23 20:42 Dose: Not Given Ferrous Sulfate (Ferrous Sulfate 325 Mg Tab) 325 mg PO DAILY LAINE Stop: 04/19/23 08:59 Last Admin: 03/22/23 09:00 Dose: 325 mg Ceftriaxone Sodium 2,000 mg/ (Dextrose) 50 mls @ 100 mls/hr IV Q24H LAINE; Protocol Stop: 03/27/23 08:59 Last Infusion: 03/22/23 09:36 Dose: Infused Vancomycin HCl 1,250 mg/ (Sodium Chloride) 275 mls @ 200 mls/hr IV Q8H LAINE Stop: 03/27/23 07:59 Last Infusion: 03/23/23 04:03 Dose: Infused Magnesium Hydroxide (Magnesium Hydroxide Susp 30 Ml Udc) 30 ml PO Q6H PRN PRN Reason: Constipation Stop: 04/18/23 22:12 Mirtazapine (Mirtazapine Tab 15 Mg Tab) 30 mg PO HS LAINE Stop: 04/18/23 22:12 Last Admin: 03/22/23 20:42 Dose: 30 mg Miscellaneous Information (Vancomycin Consult Active) 1 each N/A UD PRN PRN Reason: Consult Stop: 04/18/23 22:12 Ondansetron HCl (Ondansetron Inj 2 Mg/Ml 2 Ml Vial) 4 mg IV Q6H PRN PRN Reason: Nausea Stop: 04/18/23 22:12 Polyethylene Glycol (Polyethylene (Miralax) 17 Gm Pack) 17 gm PO DAILY PRN PRN Reason: Constipation Stop: 04/18/23 22:12
[2023-03-23] MEDS: FERROUS SULFATE 325 MG TAB PO SCH (08:59)
[2023-03-23] MEDS: amLODIPine BESYLATE 5 MG TAB PO SCH (08:59)
[2023-03-23] MEDS: cefTRIAXone SODIUM 2,000 MG in DEXTROSE 5 % MINI-B 50 ML IV SCH (08:59)
[2023-03-23] MEDS: ASCORBIC ACID 500 MG TAB PO SCH (08:59)
[2023-03-23] MEDS: ASPIRIN 81 MG ECTAB PO SCH (08:59)
[2023-03-23] MEDS: CELECOXIB 100 MG CAP PO SCH ×2 (09:41→20:34)
--- NOTE | 2023-03-23 10:55 | Pharmacy Report ---
Pharmacy PK ABX Note - Date of Service March 23, 2023 - Assessment and Plan Assessment 03/23: Random level this morning 13.9 mcg/mL, predicts therapeutic AUC/PATIENCE, continue with current dosing. Day #5 of antibiotics, WBC has now normalized, afebrile. 03/22: Random level this morning 10.4 mcg/mL, predicts AUC just below target (397 mg/L.hr) with 48% probability that AUC is >400. Will adjust dose today. Blood cultures negative at 48 hours. SCr has been downtrending since admission. Mild leukocytosis also downtrending. Some improvement to edema noted. Day #4 of antibiotics. 03/20 53 year old M receiving empiric vancomycin and ceftriaxone for treatment of LLE cellulitis. Patient resides at [facility] and is at risk for MDROs. Patient was seen in ED on 03/15 and discharged w/ Bactrim. Pertinent microbiologic data includes: MRSA nasal swab negative, blood cultures x 2 pending. Patient is afebrile, but noted leukocytosis (WBC: ~13 K). Renal function appears stable, but unsure of baseline (SCr was 1.75 mg/dL in ED on 03/15, now 1.01 mg/dL). Day # 1 of antimicrobial therapy. Plan 03/23: * Continue dose 1250 mg q8H * Predicts ssAUC of 517 mg/L.hr with 92% probability * Additional level in 2-3 days 03/22: Vancomycin * Adjust dose to 1250 mg q8H * This predicts a ssAUC of 583 mg/L.hr with 99% probability in goal range * Level to be ordered for 03/23. 03/20: Vancomycin * Loading dose: 1750 mg IV x 1 * Maintenance dose: 1250 mg IV every 12 hours * Regimen is predicted to achieve target AUC/PATIENCE of 400-600 mg/L.hr * Vancomycin level ordered for: 03/22/23 Ceftriaxone * 2 g IV q24h - appropriately dosed Pharmacy will continue to follow and will adjust dose/frequency as necessary. Thank you. Pharmacy has transitioned to AUC monitoring for vancomycin. AUC/PATIENCE is the preferred PK/PD target and is associated with decreased risk of nephrotoxicity compared to traditional trough targets.
[2023-03-23] MEDS: ADVANCED PROBIOTIC 1250 MG CAPSULE PO SCH (12:12)
[2023-03-23] MEDS: ATORVASTATIN 10 MG TAB PO SCH (20:33)
[2023-03-23] MEDS: DULoxetine HCL 60 MG CAP PO SCH (20:34)
[2023-03-23] MEDS: MIRTAZAPINE TAB 15 MG TAB PO SCH (20:34)
[2023-03-23] MEDS: ENOXAPARIN INJ 40 MG/0.4 ML SYR SQ SCH (20:34)
[2023-03-24] MEDS: VANCOMYCIN HCL 1,250 MG in SODIUM CHLORIDE 0.9% 250 ML IV SCH ×2 (01:48→09:55)
[2023-03-24] MEDS: cefTRIAXone SODIUM 2,000 MG in DEXTROSE 5 % MINI-B 50 ML IV SCH (09:19)
[2023-03-24] MEDS: ASPIRIN 81 MG ECTAB PO SCH (09:20)
[2023-03-24] MEDS: CELECOXIB 100 MG CAP PO SCH (09:20)
[2023-03-24] MEDS: ADVANCED PROBIOTIC 1250 MG CAPSULE PO SCH (09:20)
[2023-03-24] MEDS: amLODIPine BESYLATE 5 MG TAB PO SCH (09:20)
[2023-03-24] MEDS: FERROUS SULFATE 325 MG TAB PO SCH (09:20)
[2023-03-24] MEDS: ASCORBIC ACID 500 MG TAB PO SCH (09:21)
[2023-03-24 09:44] LABS: Hematocrit (blood only) 31.6 % (42.0-52.0); Hemoglobin 10.1 g/dl (14.0-18.0); Mean Corpuscular Hemoglobin 29.4 pg (25.0-34.0); Mean Corpuscular Volume 92.1 fL (80.0-100.0); Mean Platelet Volume 9.6 fL (9.4-12.4); Nucleated RBC # (auto) 0.04 K/uL (0.00-0.12); Nucleated RBC % (auto) 0.5 %; Platelet Count 407 K/uL (130-400); RDW Coefficient of Variation 13.3 % (11.5-14.5); RDW Standard Deviation 44.6 fL (36.4-46.3); Red Blood Count 3.43 M/uL (4.70-6.10); White Blood Count 8.68 K/ul (4.8-10.8)
[2023-03-24 10:02] LABS: BUN Creatinine Ratio 18.4 (10-20); Calcium 8.8 mg/dl (8.6-10.3); Creatinine Clr Calc Pharmacy 104.6 ml/min; Est GFR (African American) 114.2 ml/min; Est GFR (Non-African American) 98.5 ml/min; Potassium 4.4 mmol/L (3.5-5.1)
[2023-03-24] MEDS ORDERED: cephALEXin 500MG HOME PACK PO STA (11:04)
--- NOTE | 2023-03-24 11:16 | Discharge Summary ---
Date of Service March 24, 2023 Admission HPI Per Admitting Provider This is a 53-year-old -[place] male who has significant past medical history of HTN, HLD, iron deficiency anemia and depression who presents to ED secondary to worsening redness and swelling of left leg. He currently resides at [facility] [place]. He was seen and evaluated in the ED 1 week ago secondary to left leg swelling and redness. He also notes the day before that he developed nausea/vomiting and diarrhea. He was treated for a LLE cellulitis with IV rocephin and discharged on oral bactrim. He continues to have worsened redness/swelling with some areas of blistering on the left leg. He denies any significant pain. He denies any trauma or open wounds. He has never had anything like this before. He denies f/c/s, chest pain, sob, n/v/d, abd pain. Overall his appetite has been okay. Admission Exam Per Admitting Provider Constitutional: WD/WN, vitals as above, NAD, sitting up in bed, pleasant, conversing easily Head: Normocephalic, Atraumatic Eyes: PERRL, conjunctivae normal, anicteric sclerae ENMT: external ear and nose normal, oropharynx normal Neck: trachea midline, no thyromegaly normal visual inspection Respiratory: normal respiratory effort, lungs clear to auscultation, no wheeze, rales, rhonchi. Normal insp/exp effort, no accessory muscle use Cardiovascular: RRR, no murmur, LLE, noted below Vessels: no JVD or carotid bruit Chest: normal inspection of chest Abdomen: normal bowel sounds, soft, nontender, no hepatosplenomegaly Musculoskeletal: no cyanosis or clubbing, extremities motor strength 5/5 Skin: LLE warm, edematous, erythematous with medial blistering, scabs noted, no rashes, warm and dry normal turgor Neurologic: PERRL, EOMI, accommodation nl, no face palsy, no dysarthria CN's II-XI intact bilaterally and moves all extremities Psychiatric: A+Ox3, euthymic affect Lymphatic: no cervical or axillary lymphadenopathy : deferred Principal Diagnosis Left leg cellulitis Discharge Exam Constitutional: WD/WN, vitals as above no acute distress Respiratory: normal respiratory effort, lungs clear to auscultation Cardiovascular: Rate/Rhythm: regular rate and regular rhythm Vessels: normal peripheral pulses Extremities: + 1 edema (LLE edema improved) Gastrointestinal (Abdomen): Percussion/Palpation: abdomen soft; abdomen nontender Musculoskeletal: +1 edema LLE; scattered dried scabs note d on the posterior and medial aspects of left lower leg Skin: no rashes, warm and dry Neurologic: no focal motor deficits Psychiatric: A+Ox3, euthymic affect Discharge Data Allergies Allergy/AdvReac Type Severity Reaction Status Date / Time No Known Allergies Allergy Verified 03/19/23 13:48 Ordered Studies 03/20/23 09:40 CT leg [CT tib/fib LT w con] Routine FINDINGS: The osseous structures are without fracture or dislocation. Degenerative changes are seen in the bones of the ankle with subchondral cyst formation in the talus. No joint effusion is seen. Skin thickening and diffuse soft tissue edema is seen without drainable fluid collection. IMPRESSION: Soft tissue swelling without drainable fluid collection. No underlying bony abnormalities are seen. Hospital Course (1) Cellulitis of left leg: (2) HTN (hypertension): (3) HLD (hyperlipidemia): (4) Iron deficiency anemia: Plan This is a 53-year-old -[place] male who has significant past medical history of HTN, HLD, iron deficiency anemia and depression who presented to ED secondary to worsening redness and swelling of left leg. Left lower extremity cellulitis WBC 13.9 --> 8.7 CRP elevated 10.82 On Vanco and Rocephin (day 5) Encourage leg elevation Daily probiotic Ultrasound done on 03/15 that was negative for DVT CT LLE obtained on 03/21 - negative for drainable fluid collection 03/23 edema, erythema and pain much improved. Pt denies any more pain however did not ambulate while hospitalized. Contacted physician at [facility] ([place] - they don't have antibiotics for the pt at this time and pt has to be able to ambulate before he returns to senior living. 03/24 Pt is ambulatory. Contacted [facility] - they will not have Keflex until Sunday. Our hospital pharmacy will provide Keflex for next 3 days so that pt could be discharged. HTN Continue amlodipine Chronic, stable HLD Continue atorvastatin Chronic, stable Iron deficiency anemia Hgb 11.3 --> 9.9 -> 10.7 Continue iron supplementation Right hip osteoarthritis Continue Celebrex Total Time Total Time Spent Total Time Spent (In Minutes): 40 Discharge Plan Discharge Items [facility] Reason For Visit: CELLULITIS Discharge Diagnosis: Left leg cellulitis Activity: Per Instructions section Non-emergency contact: Primary Care Provider Call non-emergency contact if: you have any medication questions and your symptoms worsen Follow-up/Referrals: Adam JUSTIN [Primary Care Provider] - Diet: Regular Addtl Attending Provider Instructions: Follow up with primary care physician. Finish antibiotic treatment - 5 more days - with doxycycline 100 bid and Keflex 500 qid. Recommend taking probiotics while on antibiotic. Pending Studies at Discharge: No Stand-Alone Forms: My [facility] Skilled Items Patient informed of condition?: Yes Discharge Level of Care: Other Communicable Disease: No Discharge Prognosis: Stable Lines: None Urinary Catheter: No Medications and DC Order Prescriptions: New Advanced Probiotic 625 mg (10 billion cell) Capsule 2 cap PO DAILY 5 Days Qty: 10 0RF doxycycline hyclate 100 mg capsule 100 mg PO BID 5 Days Qty: 10 0RF cephalexin 500 mg capsule 500 mg PO QID 5 Days Qty: 20 0RF Continued atorvastatin 10 mg Tablet 10 mg PO HS amlodipine 5 mg Tablet 7.5 mg PO DAILY aspirin [Aspir-81] 81 mg Tablet,Delayed Release (Dr/Ec) 81 mg PO DAILY ascorbic acid (vitamin C) [Vitamin C] 500 mg Tablet 500 mg PO DAILY mirtazapine 30 mg Tablet 30 mg PO HS celecoxib 100 mg Capsule 100 mg PO BID duloxetine 60 mg Capsule,Delayed Release(Dr/Ec) 60 mg PO HS ferrous sulfate 324 mg (65 mg iron) Tablet,Delayed Release (Dr/Ec) 324 mg PO DAILY Discharge Orders: Discharge Order (Routine); Ordered 03/24/23 Ordered By: Glynn David Admission Data Admit Date/Time: 03/19/23 18:28 Attending Provider: Glynn David Admit Provider: Madhavi Cummings Primary Care Provider: Adam JUSTIN Other Providers: Bhavin Swartz
[2023-03-25] MEDS ORDERED: cephALEXin 500 MG CAP PO SCH
== END 2023-03-24 13:37 | DRG 603 ==
LOC: ED 13:20 → 3E 18:28 → SUATTDRO 18:28 → 3E 20:55